=== PATIENT | male | born 1975 | race African-American/Black ===

== ENCOUNTER 2020-02-22 17:56 | Emergency (ER) | payer OTHER ==
[~2020-02-22] VITALS: Ht 170.2 cm; Wt 79.5 kg
[2020-02-22] MEDS ORDERED: FAMOTIDINE 20 MG/2 ML VIAL IVP ONE (19:00)
[2020-02-22] MEDS ORDERED: IV NORMAL SALINE 1,000ML 1,000 ML IV ONE (19:00)
[2020-02-22] MEDS ORDERED: KETOROLAC 15 MG/ML VIAL. IVP ONE (19:00)
[2020-02-22] MEDS ORDERED: IOHEXOL 300 MG/ML 75 ML VIAL. IART ONE (19:15)
--- NOTE | 2020-02-22 19:52 | PHYS DOC ---
Past History Past Medical History: Hypertension Past Surgical History: No Surgical History Smoking: Cigarettes Alcohol Use: Occasionally Drug Use: Marijuana General Adult EDM: Chief Complaint: ABDOMINAL PAIN HPI: HPI: 44-year-old male presents with report of left upper quadrant abdominal pain with associated nausea. Patient reports is been intermittent for the past several days. Reports some associated headache and diaphoresis when pain becomes severe. Denies known sick contacts. Denies travel outside [place]. Denies fever or chills. Denies vomiting. Denies trauma. Denies known exposure to COVID-19. Review of Systems: Review of Systems: Constitutional: Denies fever or chills; reports diaphoresis Eyes: Denies redness or eye pain HENT: Denies nasal congestion or sore throat Respiratory: Denies cough or shortness of breath Cardiovascular: Denies chest pain or palpitations GI: Reports abdominal pain and nausea; denies vomiting : Denies dysuria or hematuria Musculoskeletal: Denies back pain or joint pain Integument: Denies rash or skin lesions Neurologic: Reports headache; denies focal weakness or sensory changes Complete systems were reviewed and found to be within normal limits, except as documented in this note. Current Medications: Current Meds: Current Medications Medications (Trade) Dose Ordered Sig/Hilaria Start Time Stop Time Status Last Admin Dose Admin Famotidine (Pepcid Vial) 20 mg 1X ONCE 02/22/20 19:00 02/22/20 19:11 DC 02/22/20 19:42 20 MG Iohexol (Omnipaque 300 Mg/ml) 75 ml 1X ONCE 02/22/20 19:15 02/22/20 19:16 DC Ketorolac Tromethamine (Toradol 15mg Vial) 15 mg 1X ONCE 02/22/20 19:00 02/22/20 19:11 DC 02/22/20 19:44 15 MG Sodium Chloride 1,000 ml @ 1,000 mls/hr 1X ONCE 02/22/20 19:00 02/22/20 19:59 02/22/20 19:36 1,000 MLS/HR Allergies: Allergies: Allergies Coded Allergies Type Severity Reaction Last Updated Verified No Known Drug Allergies 02/22/20 No Physical Exam: PE: Constitutional: Well developed, well nourished, no acute distress, non-toxic appearance HENT: Normocephalic, atraumatic Eyes: PERRL, EOMI, conjunctiva normal, no discharge, no nystagmus Neck: Normal range of motion, no midline tenderness, supple, no meningeal signs Lungs & Thorax: No respiratory distress, equal chest rise and fall Abdomen: Soft, mild left upper quadrant tenderness, no guarding/distention/rebound tenderness Skin: Warm, dry, no erythema, no rash Back: No tenderness, no CVA tenderness Extremities: No tenderness, ROM intact, no edema Neurologic: Alert and oriented X 3, normal motor function, normal sensory function, no focal deficits noted Psychologic: Affect normal, judgment normal Current Patient Data: Vital Signs: Vital Signs Date Time Temp Pulse Resp B/P (MAP) Pulse Ox O2 Delivery O2 Flow Rate FiO2 02/22/20 18:30 97.9 92 20 125/79 (94) 99 Room Air EKG: EKG: @1945 NSR at 76bpm, NO ST elevation, QRS 84ms, QT/QTc 356/405ms Radiology/Procedures: Radiology/Procedures: PROCEDURE: CT CHEST ABD PELVIS W/CONTRAST CT CHEST ABD PELVIS W/CONTRAST Indication: Left lower chest and left upper abdominal pain, nausea, diaphoresis Technique: Postcontrast CT imaging was performed of the chest, abdomen, pelvis, multiplanar reconstruction images submitted. No oral contrast was given. One or more of the following individualized dose reduction techniques were utilized for this examination: 1. Automated exposure control 2. Adjustment of the mA and/or kV according to patient size 3. Use of iterative reconstruction technique. Comparison: None CHEST: Findings: There is some motion degradation. Thoracic aortic caliber is within normal limits without dissection flap, mild plaque present. There is no pleural or pericardial fluid, pneumothorax, or infiltrate. Exam was not tailored for the evaluation for pulmonary embolic disease, no central embolism identified in a pulmonary arteries. No significantly enlarged nodes are identified of the chest. IMPRESSION: 1. No significant acute abnormality is identified. Abdomen pelvis FINDINGS: No focal abnormality is identified of the liver, spleen, or pancreas although nonspecific visualization of the proximal pancreatic duct. Gallbladder is present without obvious intraluminal abnormality by CT. There is no adrenal nodularity. Both kidneys enhance, no hydronephrosis. There is a 1.1 cm hypodense lesion of the mid posterior left kidney with density measurements greater than a simple cyst 45 Hounsfield units. There is some scattered plaque abdominal aorta and iliac arteries. Stomach is somewhat distended. Accurate evaluation of bowel is limited without oral contrast. There may be a degree of proximal small bowel wall thickening. No free fluid or free air is identified. There is mild colonic diverticulosis. Appendix cannot be clearly identified. There is moderate to severe L4-5 degenerative disc disease. IMPRESSION: 1.There could be a degree of proximal small bowel as may be seen with enteritis in the appropriate clinical setting although limited evaluation of the bowel without oral contrast. Stomach is somewhat distended. Appendix is not identified to confidently exclude acute appendicitis by imaging. 2. Hypodense lesion of the left kidney is indeterminate for simple cyst although possibly somewhat complex cyst better characterized with nonemergent ultrasound. Electronically signed by: Dariusz Kimble MD (02/22/2020 8:26 PM) [facility] Course & Med Decision Making: Course & Med Decision Making Pertinent Labs and Imaging studies reviewed. (See chart for details) Patient presents with report of left upper quadrant abdominal pain with associated headache and nausea. Patient does report when pain becomes severe he does become diaphoretic. EKG stable. Labs obtained and posted to chart. Initial troponin within normal limits. LFTs/lipase also within normal limits. CT chest/abdomen/pelvis without acute process. There is notation of possible enteritis however patient denies any diarrhea. Patient denies known sick contacts. Symptomatic treatment provided with interval improvement of symptoms. Patient stable for discharge with outpatient follow-up with PCP/GI. GI referral provided. Discussed findings and plan with patient, who acknowledges understanding and agreement. Queenie Disclaimer: Queenie Disclaimer: This electronic medical record was generated, in whole or in part, using a voice recognition dictation system. Departure Departure: Impression: Primary Impression: Abdominal pain Qualified Codes: R10.12 - Left upper quadrant pain Disposition: HOME/RESIDENCE PRIOR TO ADM Condition: STABLE Referrals: PCP,JANE (PCP) JIM ATKINS MD Patient Instructions: Abdominal Pain (Nonspecific) Scripts Hyoscyamine Sulfate (LEVSIN-SL) 0.125 Mg Tab.subl 0.125 MG SL Q4-6HRS PRN for PAIN, #14 TAB Prov: AMANDA DONOVAN DO 02/22/20 Ondansetron (ONDANSETRON ODT) 4 Mg Tab.rapdis 1 TAB PO PRN Q6-8HRS PRN for NAUSEA, #16 TAB Prov: AMANDA DONOVAN DO 02/22/20 Famotidine (PEPCID) 20 Mg Tablet 1 TAB PO BID for Gastritis for 7 Days, #14 TAB Prov: AMANDA DONOVAN DO 02/22/20 Justification of Admission: Justification of Admission: Justification of Admission Dx: N/A AMANDA DONOVAN DO Feb 22, 2020 19:52
[2020-02-22 19:54] LABS: BASO % 1 % (0-3); EOS # 0.1 x10^3/uL (0.0-0.7); EOS % 1 % (0-3); HEMATOCRIT 46.1 % (39.0-53.0); HEMOGLOBIN 15.7 g/dL (13.0-17.5); LYMPH # 2.3 x10^3/uL (1.0-4.8); LYMPH % 37 % (24-48); MEAN CORPUSCULAR HEMOGLOBIN 33 pg (25-35); MEAN CORPUSCULAR HGB CONC 34 g/dL (31-37); MEAN CORPUSCULAR VOLUME 97 fL (79-100); MONO # 0.5 x10^3/uL (0.0-1.1); MONO % 8 % (0-9); NEUT # 3.3 x10^3uL (1.8-7.7); NEUT % 53 % (31-73); PLATELET COUNT 280 x10^3/uL (140-400); RED BLOOD COUNT 4.78 x10^6/uL (4.30-5.70); RED CELL DISTRIBUTION WIDTH 13.6 % (11.5-14.5); WHITE BLOOD COUNT 6.2 x10^3/uL (4.0-11.0)
[2020-02-22 20:01] LABS: CALCIUM 9.3 mg/dL (8.5-10.1); CREATININE 1.4 mg/dL (0.7-1.3); POTASSIUM 4.2 mmol/L (3.5-5.1)
[2020-02-22 20:07] LABS: ALBUMIN 3.9 g/dL (3.4-5.0); ALBUMIN/GLOBULIN RATIO 1.1 (1.0-1.7); TOTAL BILIRUBIN 0.4 mg/dL (0.2-1.0); TOTAL PROTEIN 7.4 g/dL (6.4-8.2)
--- NOTE | 2020-02-22 20:29 | RAD ---
CT CHEST ABD PELVIS W/CONTRAST Indication: Left lower chest and left upper abdominal pain, nausea, diaphoresis Technique: Postcontrast CT imaging was performed of the chest, abdomen, pelvis, multiplanar reconstruction images submitted. No oral contrast was given. One or more of the following individualized dose reduction techniques were utilized for this examination: 1. Automated exposure control 2. Adjustment of the mA and/or kV according to patient size 3. Use of iterative reconstruction technique. Comparison: None CHEST: Findings: There is some motion degradation. Thoracic aortic caliber is within normal limits without dissection flap, mild plaque present. There is no pleural or pericardial fluid, pneumothorax, or infiltrate. Exam was not tailored for the evaluation for pulmonary embolic disease, no central embolism identified in a pulmonary arteries. No significantly enlarged nodes are identified of the chest. IMPRESSION: 1. No significant acute abnormality is identified. Abdomen pelvis FINDINGS: No focal abnormality is identified of the liver, spleen, or pancreas although nonspecific visualization of the proximal pancreatic duct. Gallbladder is present without obvious intraluminal abnormality by CT. There is no adrenal nodularity. Both kidneys enhance, no hydronephrosis. There is a 1.1 cm hypodense lesion of the mid posterior left kidney with density measurements greater than a simple cyst 45 Hounsfield units. There is some scattered plaque abdominal aorta and iliac arteries. Stomach is somewhat distended. Accurate evaluation of bowel is limited without oral contrast. There may be a degree of proximal small bowel wall thickening. No free fluid or free air is identified. There is mild colonic diverticulosis. Appendix cannot be clearly identified. There is moderate to severe L4-5 degenerative disc disease. IMPRESSION: 1.There could be a degree of proximal small bowel as may be seen with enteritis in the appropriate clinical setting although limited evaluation of the bowel without oral contrast. Stomach is somewhat distended. Appendix is not identified to confidently exclude acute appendicitis by imaging. 2. Hypodense lesion of the left kidney is indeterminate for simple cyst although possibly somewhat complex cyst better characterized with nonemergent ultrasound. Electronically signed by: Dariusz Kimble MD (02/22/2020 8:26 PM) [facility]
[2020-02-22 21:08] LABS: BARBITURATES NEG (NEG); BENZODIAZEPINES NEG (NEG); CANNABINOIDS POS (NEG); COCAINE NEG (NEG); METHADONE NEG (NEG); OPIATES NEG (NEG); PHENCYCLIDINE NEG (NEG)
[2020-02-22 21:19] LABS: AMPHETAMINE/METHAMPHETAMINE NEG (NEG)
[2020-02-22 21:27] LABS: BACTERIA,URINE 0 /HPF (0-FEW); BILIRUBIN,URINE NEG (NEG); CLARITY,URINE CLEAR; COLOR,URINE YELLOW; GLUCOSE,URINE NEG (NEG); NITRITE,URINE NEG (NEG); UROBILINOGEN,URINE 0.2 mg/dL (0.2 mg/dL); WBC,URINE 0 /HPF (0-4)
[2020-02-22 21:28] LABS: SQUAMOUS EPITHELIAL CELL,UR OCC /LPF
[2020-02-22 21:38] VITALS: BP 125/86
[2020-02-22] MEDS ORDERED: ONDA4TAB12 PO (21:44)
[2020-02-22] MEDS ORDERED: FAMO-63 PO (21:44)
[2020-02-22] MEDS ORDERED: HYOS0.1265 SL (21:44)
--- NOTE | 2020-02-24 12:38 | EKG ---
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
== END 2020-02-22 21:51 | disposition home or self-care (01) ==
LOC: ER 17:56
DX: R10.12 Left upper quadrant pain (principal); R11.0 Nausea; R51 Headache; I10 Essential (primary) hypertension; F17.210 Nicotine dependence, cigarettes, uncomplicated
CPT/HCPCS: 36415; 71260; 74177; 80053; 80307; 81001; 82553; 83690; 83735; 84484; 85025; 93005; 96374; 96375; 99285; G0480; J1885; J3490; J7030; Q9967